=== PATIENT | female | born 1955 | race Caucasian/White ===

== ENCOUNTER 2016-11-10 10:27 | Emergency (ER) | payer OTHER ==
[~2016-11-10] VITALS: Ht 164 cm; Wt 64.0 kg
[2016-11-10 10:38] VITALS: BP 115/73; PULSE 84; TEMP 97.9
== END 2016-11-10 13:37 | disposition home or self-care (01) ==
LOC: COL.ER 10:27
DX: Z02.89 Encounter for other administrative examinations (principal)